=== PATIENT | male | born 1970 | race African-American/Black ===

== ENCOUNTER 2016-07-23 19:44 | Inpatient (IN) | payer OTHER ==
[2016-07-23 20:10] VITALS: BMI 22.6
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
[2016-07-23] MEDS ORDERED: MAGNESIUM HYDROX 2400MG/30ML ORAL SUSPENSION 30 ML CUP PO PRN (20:57)
[2016-07-23] MEDS ORDERED: IBUPROFEN 400 MG TABLET (FP) PO PRN (20:57)
[2016-07-23] MEDS ORDERED: chlordiazePOXIDE HCL 25 MG CAPSULE PO PRN (20:57)
[2016-07-23] MEDS ORDERED: MAG HYDROX/AL HYDROX/SIMETH 30 ML UNIT-DOSE CUP PO PRN (20:57)
[2016-07-23] MEDS ORDERED: MAGNESIUM CITRATE 300 ML BOTTLE PO PRN (20:57)
[2016-07-23] MEDS ORDERED: LOPERAMIDE HCL 2 MG CAPSULE PO PRN (20:57)
[2016-07-23] MEDS ORDERED: ACETAMINOPHEN 325 MG TABLET (FP) PO PRN (20:57)
[2016-07-23] MEDS ORDERED: MENTHOL/PHENOL 1 EACH UD MM PRN (20:57)
[2016-07-23] MEDS ORDERED: P-EPHED 60MG/TRIPROLIDI 2.5MG TABLET PO PRN (20:57)
[2016-07-23] MEDS ORDERED: guaiFENesin/D-METHORPHAN HB 10 ML UNIT-DOSE CUPS PO PRN (20:57)
[2016-07-23] MEDS ORDERED: hydrOXYzine PAMOATE 50 MG CAPSULE (FP) PO PRN (20:57)
[2016-07-23] MEDS: diphenhydrAMINE HCL 50 MG CAPSULE PO PRN (22:55)
[2016-07-23] MEDS: chlordiazePOXIDE HCL 25 MG CAPSULE PO SCH (22:55)
[2016-07-23] MEDS: THIAMINE HCL 100 MG TABLET (FP) PO SCH (22:58)
[2016-07-23] MEDS: FLUTICASONE PROP 0.05% 16 GM NASAL SPRAY NS SCH (22:59)
[2016-07-24] MEDS: chlordiazePOXIDE HCL 25 MG CAPSULE PO SCH ×4 (05:11→22:13)
[2016-07-24 10:07] LABS: MCH 30.8 pg (25.7-33.7); MEAN CELL VOLUME 93.5 fl (80-96); MEAN PLT VOLUME 9.4 fl (7.5-11.1); PLATELET COUNT 201 K/MM3 (134-434); WHITE BLOOD COUNT 7.1 K/mm3 (4.0-10.0)
[2016-07-24] MEDS: NICOTINE 14 MG/24 HOURS TOPICAL PATCH TD SCH (10:14)
[2016-07-24] MEDS: PRENATAL VITAMINS W/ FOLIC ACID TABLET (FP) PO SCH (10:14)
[2016-07-24 11:01] LABS: ALBUMIN 3.1 g/dl (3.4-5.0); ANION GAP 8 (8-16); CALCIUM 8.5 mg/dL (8.5-10.1); CO2 27 mmol/L (21-32); COCKROFT - GAULT 67.61; CREATININE 1.2 mg/dL (0.7-1.3); GLUCOSE,RANDOM 91 mg/dL (74-106); TOT PROT 5.6 g/dl (6.4-8.2)
[2016-07-24 11:02] LABS: ALK PHOS 93 U/L (45-117); BILIRUBIN,TOTAL 0.3 mg/dL (0.2-1.0); SGOT/AST 19 U/L (15-37); SGPT/ALT 37 U/L (12-78)
--- NOTE | 2016-07-24 11:45 | EKG ---
Test Reason : Blood Pressure : / mmHG Vent. Rate : 054 BPM Atrial Rate : 054 BPM P-R Int : 146 ms QRS Dur : 080 ms QT Int : 438 ms P-R-T Axes : 072 046 043 degrees QTc Int : 415 ms SINUS BRADYCARDIA WITH SINUS ARRHYTHMIA OTHERWISE NORMAL ECG NO PREVIOUS ECGS AVAILABLE Confirmed by ANGELIC MAGALLON, NOMI ([id number]) on 07/24/2016 11:44:46 AM Referred By: Navin Boone Confirmed By:NOMI ATWOOD MD
[2016-07-24] MEDS: FLUTICASONE PROP 0.05% 16 GM NASAL SPRAY NS SCH ×2 (12:02→22:12)
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
[2016-07-24 14:48] LABS: URINE APPEARANCE CLEAR; URINE BILIRUBIN NEGATIVE (NEGATIVE); URINE BLOOD NEGATIVE (NEGATIVE); URINE COLOR LTYELLOW; URINE GLUCOSE (UA) NEGATIVE (NEGATIVE); URINE KETONE NEGATIVE (NEGATIVE); URINE LEUK ESTERASE NEGATIVE (NEGATIVE); URINE NITRITE NEGATIVE (NEGATIVE); URINE PROTEIN NEGATIVE (NEGATIVE); URINE UROBILINOGEN NEGATIVE E.U./dl (0.2-1.0)
--- NOTE | 2016-07-24 17:10 | PN ---
S CIWA - CIWA Score Nausea/Vomitin Muscle Tremors: 2 Anxiety: 2 Agitation: 2 Paroxysmal Sweats: 3 Orientation: 0-Oriented Tacttile Disturbances: 1-Very Mild Itch/Numbness Auditory Disturbances: 0-None Visual Disturbances: 0-None Headache: 0-None Present CIWA-Ar Total Score: 12 S Progress Note (SOAP) Subjective: interrupted sleep, sweats Objective: 07/24/16 17:09 Vital Signs Temperature 96.4 F L 07/24/16 13:36 Pulse Rate 65 07/24/16 13:36 Respiratory Rate 18 07/24/16 13:36 Blood Pressure 110/75 07/24/16 13:36 O2 Sat by Pulse Oximetry (%) Laboratory Tests 07/24/16 07/24/16 07/24/16 07:00 07:00 07:00 WBC 7.1 RBC 4.38 Hgb 13.5 D Hct 40.9 MCV 93.5 MCHC 33.0 RDW 14.0 Plt Count 201 MPV 9.4 Sodium 143 Potassium 3.8 Chloride 108 H Carbon Dioxide 27 Anion Gap 8 BUN 18 Creatinine 1.2 Creat Clearance w eGFR > 60 Random Glucose 91 Calcium 8.5 Total Bilirubin 0.3 D AST 19 D ALT 37 D Alkaline Phosphatase 93 Total Protein 5.6 L Albumin 3.1 L Urine Color Urine Appearance Urine pH Urine Protein Urine Glucose (UA) Urine Ketones Urine Blood Urine Nitrite Urine Bilirubin Urine Urobilinogen Ur Leukocyte Esterase RPR Titer Nonreactive 07/24/16 11:00 WBC RBC Hgb Hct MCV MCHC RDW Plt Count MPV Sodium Potassium Chloride Carbon Dioxide Anion Gap BUN Creatinine Creat Clearance w eGFR Random Glucose Calcium Total Bilirubin AST ALT Alkaline Phosphatase Total Protein Albumin Urine Color Ltyellow Urine Appearance Clear Urine pH 5.0 Urine Protein Negative Urine Glucose (UA) Negative Urine Ketones Negative Urine Blood Negative Urine Nitrite Negative Urine Bilirubin Negative Urine Urobilinogen Negative Ur Leukocyte Esterase Negative RPR Titer pt aox3 in nad ambulating 07/24/16 17:10 Assessment: 07/24/16 17:10 withdrawal sx;s ' Plan: cont. detox increase fluids
[2016-07-24] MEDS: ARTIFICIAL TEARS (POLYVINYL ALCOHOL 1.4%) OPTH DROPS OU PRN (22:12)
[2016-07-24] MEDS: diphenhydrAMINE HCL 50 MG CAPSULE PO PRN (22:13)
[2016-07-24] MEDS: THIAMINE HCL 100 MG TABLET (FP) PO SCH (22:13)
[2016-07-25] MEDS: chlordiazePOXIDE HCL 25 MG CAPSULE PO SCH ×3 (06:14→17:19)
[2016-07-25] MEDS: ARTIFICIAL TEARS (POLYVINYL ALCOHOL 1.4%) OPTH DROPS OU PRN ×2 (06:15→22:11)
--- NOTE | 2016-07-25 10:05 | PN ---
[facility] CIWA - CIWA Score Nausea/Vomitin-No Nausea/No Vomiting Muscle Tremors: 3 Anxiety: 3 Agitation: 3 Paroxysmal Sweats: 2 Orientation: 0-Oriented Tacttile Disturbances: 0-None Auditory Disturbances: 0-None Visual Disturbances: 0-None Headache: 0-None Present CIWA-Ar Total Score: 11 [facility] Progress Note (SOAP) Subjective: tired sweats irritable Objective: 07/25/16 10:04 Vital Signs Temperature 97.2 F L 07/25/16 06:36 Pulse Rate 64 07/25/16 06:36 Respiratory Rate 16 07/25/16 06:36 Blood Pressure 98/55 07/25/16 06:36 O2 Sat by Pulse Oximetry (%) Laboratory Tests 07/24/16 07/24/16 07/24/16 07:00 07:00 07:00 WBC 7.1 RBC 4.38 Hgb 13.5 D Hct 40.9 MCV 93.5 MCHC 33.0 RDW 14.0 Plt Count 201 MPV 9.4 Sodium 143 Potassium 3.8 Chloride 108 H Carbon Dioxide 27 Anion Gap 8 BUN 18 Creatinine 1.2 Creat Clearance w eGFR > 60 Random Glucose 91 Calcium 8.5 Total Bilirubin 0.3 D AST 19 D ALT 37 D Alkaline Phosphatase 93 Total Protein 5.6 L Albumin 3.1 L Urine Color Urine Appearance Urine pH Ur Specific [place] Urine Protein Urine Glucose (UA) Urine Ketones Urine Blood Urine Nitrite Urine Bilirubin Urine Urobilinogen Ur Leukocyte Esterase RPR Titer Nonreactive 07/24/16 11:00 WBC RBC Hgb Hct MCV MCHC RDW Plt Count MPV Sodium Potassium Chloride Carbon Dioxide Anion Gap BUN Creatinine Creat Clearance w eGFR Random Glucose Calcium Total Bilirubin AST ALT Alkaline Phosphatase Total Protein Albumin Urine Color Ltyellow Urine Appearance Clear Urine pH 5.0 Ur Specific [place] 1.020 Urine Protein Negative Urine Glucose (UA) Negative Urine Ketones Negative Urine Blood Negative Urine Nitrite Negative Urine Bilirubin Negative Urine Urobilinogen Negative Ur Leukocyte Esterase Negative RPR Titer awake/alert ambulating no acute distress Assessment: 07/25/16 10:05 withdrawal sx Plan: continue detox increase fluids
[2016-07-25] MEDS: PRENATAL VITAMINS W/ FOLIC ACID TABLET (FP) PO SCH (10:24)
[2016-07-25] MEDS: FLUTICASONE PROP 0.05% 16 GM NASAL SPRAY NS SCH ×2 (10:24→22:11)
[2016-07-25] MEDS: NICOTINE 14 MG/24 HOURS TOPICAL PATCH TD SCH (10:24)
[2016-07-25] MEDS ORDERED: chlordiazePOXIDE HCL 25 MG CAPSULE PO ONE (10:42)
[2016-07-25] MEDS: THIAMINE HCL 100 MG TABLET (FP) PO SCH (22:12)
[2016-07-25] MEDS: diphenhydrAMINE HCL 50 MG CAPSULE PO PRN (22:12)
[2016-07-25] MEDS: chlordiazePOXIDE 5 MG CAPSULE PO SCH (22:13)
[2016-07-26] MEDS: chlordiazePOXIDE 5 MG CAPSULE PO SCH ×3 (05:24→17:47)
[2016-07-26] MEDS: ARTIFICIAL TEARS (POLYVINYL ALCOHOL 1.4%) OPTH DROPS OU PRN ×2 (05:27→10:14)
[2016-07-26] MEDS: PRENATAL VITAMINS W/ FOLIC ACID TABLET (FP) PO SCH (10:11)
[2016-07-26] MEDS: FLUTICASONE PROP 0.05% 16 GM NASAL SPRAY NS SCH ×2 (10:11→22:10)
[2016-07-26] MEDS: NICOTINE 14 MG/24 HOURS TOPICAL PATCH TD SCH (10:12)
[2016-07-26] MEDS ORDERED: LIDOCAINE 5% TOPICAL PATCH TP ONE (12:00)
--- NOTE | 2016-07-26 12:04 | PN ---
[facility] Progress Note (SOAP) Subjective: feeling better but lbp. Objective: 07/26/16 12:03 Vital Signs Temperature 96.1 F L 07/26/16 09:50 Pulse Rate 68 07/26/16 09:50 Respiratory Rate 18 07/26/16 09:50 Blood Pressure 109/78 07/26/16 09:50 O2 Sat by Pulse Oximetry (%) Laboratory Tests 07/24/16 07/24/16 07/24/16 07:00 07:00 07:00 WBC 7.1 RBC 4.38 Hgb 13.5 D Hct 40.9 MCV 93.5 MCHC 33.0 RDW 14.0 Plt Count 201 MPV 9.4 Sodium 143 Potassium 3.8 Chloride 108 H Carbon Dioxide 27 Anion Gap 8 BUN 18 Creatinine 1.2 Creat Clearance w eGFR > 60 Random Glucose 91 Calcium 8.5 Total Bilirubin 0.3 D AST 19 D ALT 37 D Alkaline Phosphatase 93 Total Protein 5.6 L Albumin 3.1 L Urine Color Urine Appearance Urine pH Ur Specific [place] Urine Protein Urine Glucose (UA) Urine Ketones Urine Blood Urine Nitrite Urine Bilirubin Urine Urobilinogen Ur Leukocyte Esterase RPR Titer Nonreactive 07/24/16 11:00 WBC RBC Hgb Hct MCV MCHC RDW Plt Count MPV Sodium Potassium Chloride Carbon Dioxide Anion Gap BUN Creatinine Creat Clearance w eGFR Random Glucose Calcium Total Bilirubin AST ALT Alkaline Phosphatase Total Protein Albumin Urine Color Ltyellow Urine Appearance Clear Urine pH 5.0 Ur Specific [place] 1.020 Urine Protein Negative Urine Glucose (UA) Negative Urine Ketones Negative Urine Blood Negative Urine Nitrite Negative Urine Bilirubin Negative Urine Urobilinogen Negative Ur Leukocyte Esterase Negative RPR Titer pt aox3 in nad ambualting Assessment: 07/26/16 12:03 withdrawal sx;s lbp Plan: cont. detox increase fluids lidocaine patch d/c in am
[2016-07-26] MEDS ORDERED: LIDOCAINE PATCH REMOVAL MC SCH ×2 (22:00)
[2016-07-26] MEDS: chlordiazePOXIDE HCL 10 MG CAPSULE PO SCH (22:10)
[2016-07-26] MEDS: diphenhydrAMINE HCL 50 MG CAPSULE PO PRN (22:11)
[2016-07-26] MEDS: THIAMINE HCL 100 MG TABLET (FP) PO SCH (22:11)
[2016-07-27] MEDS: chlordiazePOXIDE HCL 10 MG CAPSULE PO SCH (06:08)
[2016-07-27] MEDS: ARTIFICIAL TEARS (POLYVINYL ALCOHOL 1.4%) OPTH DROPS OU PRN (06:09)
[2016-07-27 07:13] VITALS: BP 94/59; PULSE 74; TEMP 97.3
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
[2016-07-27] MEDS ORDERED: LIDOCAINE 5% TOPICAL PATCH TP SCH (10:00)
== END 2016-07-27 10:00 | disposition home or self-care (01) | DRG 897 ==
LOC: YASAS 19:44 → Y6N 21:24
PROVIDERS: ADMIT Internal Medicine; ATTEND Internal Medicine Addiction Medicine
PROC: HZ2ZZZZ Detoxification Services for Substance Abuse Treatment (ICD-10-PCS; principal; 2016-07-23)
DX: F19.230 Other psychoactive substance dependence with withdrawal, uncomplicated (principal); F14.20 Cocaine dependence, uncomplicated; F10.230 Alcohol dependence with withdrawal, uncomplicated; F17.210 Nicotine dependence, cigarettes, uncomplicated; F32.9 Major depressive disorder, single episode, unspecified; M54.5 Low back pain; Z86.79 Personal history of other diseases of the circulatory system; Z91.5 Personal history of self-harm; Z86.11 Personal history of tuberculosis
CPT/HCPCS: 36415; 71020-TC; 80053; 81003; 85027; 86593; 93005; 93010

== ENCOUNTER 2017-10-24 15:37 | Inpatient (IN) | payer OTHER ==
[2017-10-24 15:46] VITALS: BMI 21.9
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
[2017-10-24] MEDS ORDERED: MENTHOL/PHENOL 1 EACH UD MM PRN (17:36)
[2017-10-24] MEDS ORDERED: MAGNESIUM CITRATE 300 ML BOTTLE PO PRN (17:36)
[2017-10-24] MEDS ORDERED: LOPERAMIDE HCL 2 MG CAPSULE PO PRN (17:36)
[2017-10-24] MEDS ORDERED: MAG HYDROX/AL HYDROX/SIMETH 30 ML UNIT-DOSE CUP PO PRN (17:36)
[2017-10-24] MEDS ORDERED: chlordiazePOXIDE HCL 25 MG CAPSULE PO PRN (17:36)
[2017-10-24] MEDS ORDERED: ACETAMINOPHEN 325 MG TABLET (FP) PO PRN (17:36)
[2017-10-24] MEDS ORDERED: P-EPHED 60MG/TRIPROLIDI 2.5MG TABLET PO PRN (17:36)
[2017-10-24] MEDS ORDERED: guaiFENesin/D-METHORPHAN HB 10 ML UNIT-DOSE CUPS PO PRN (17:36)
[2017-10-24] MEDS ORDERED: MAGNESIUM HYDROX 2400MG/30ML ORAL SUSPENSION 30 ML CUP PO PRN (17:36)
[2017-10-24] MEDS ORDERED: hydrOXYzine PAMOATE 50 MG CAPSULE (FP) PO PRN (17:36)
[2017-10-24] MEDS ORDERED: chlordiazePOXIDE HCL 25 MG CAPSULE PO ONE (18:30)
[2017-10-24 21:17] LABS: URINE APPEARANCE CLEAR; URINE BILIRUBIN NEGATIVE (<2.0 mg/dL); URINE COLOR COLORLESS; URINE GLUCOSE (UA) NEGATIVE (NEGATIVE); URINE KETONE NEGATIVE (NEGATIVE); URINE LEUK ESTERASE NEGATIVE (NEGATIVE); URINE NITRITE NEGATIVE (NEGATIVE); URINE PROTEIN NEGATIVE (NEGATIVE); URINE UROBILINOGEN NEGATIVE mg/dL (0.2-1.0)
[2017-10-24] MEDS: THIAMINE HCL 100 MG TABLET (FP) PO SCH (22:26)
[2017-10-24] MEDS: chlordiazePOXIDE HCL 25 MG CAPSULE PO SCH (22:26)
[2017-10-25] MEDS: chlordiazePOXIDE HCL 25 MG CAPSULE PO SCH ×4 (05:48→22:29)
[2017-10-25 10:09] LABS: CHLORIDE 111 mmol/L (98-107); HEMATOCRIT 41.5 % (35.4-49); HEMOGLOBIN 13.4 GM/dL (11.7-16.9); MCH 30.1 pg (25.7-33.7); MCHC 32.4 g/dl (32.0-35.9); MEAN CELL VOLUME 92.9 fl (80-96); MEAN PLT VOLUME 9.5 fl (7.5-11.1); PLATELET COUNT 177 K/MM3 (134-434); POTASSIUM 4.1 mmol/L (3.5-5.1); RBC 4.46 M/mm3 (4.00-5.60); RDW 13.9 % (11.9-15.9); SODIUM 146 mmol/L (136-145); WHITE BLOOD COUNT 5.9 K/mm3 (4.0-10.0)
[2017-10-25] MEDS: PRENATAL VITAMINS W/ FOLIC ACID TABLET (FP) PO SCH (10:11)
[2017-10-25] MEDS: NICOTINE 21 MG/24 HOURS TOPICAL PATCH TD SCH (10:11)
[2017-10-25 10:16] LABS: ALBUMIN 3.1 g/dl (3.4-5.0); ALK PHOS 94 U/L (45-117); ANION GAP 7 MMOL/L (8-16); BILIRUBIN,TOTAL 0.2 mg/dL (0.2-1.0); BLOOD UREA NITROGEN 11 mg/dL (7-18); CALCIUM 8.3 mg/dL (8.5-10.1); CO2 28 mmol/L (21-32); CREATININE 1.2 mg/dL (0.7-1.3); GLUCOSE,RANDOM 83 mg/dL (74-106); SGOT/AST 9 U/L (15-37); SGPT/ALT 17 U/L (12-78); TOT PROT 5.7 g/dl (6.4-8.2)
--- NOTE | 2017-10-25 12:09 | EKG ---
Test Reason : Blood Pressure : / mmHG Vent. Rate : 057 BPM Atrial Rate : 057 BPM P-R Int : 158 ms QRS Dur : 080 ms QT Int : 434 ms P-R-T Axes : 065 052 038 degrees QTc Int : 422 ms SINUS BRADYCARDIA OTHERWISE NORMAL ECG WHEN COMPARED WITH ECG OF 31-DEC-2016 21:35, NO SIGNIFICANT CHANGE WAS FOUND Confirmed by TELLY SCHULTZ MD ([id number]) on 10/25/2017 12:09:20 PM Referred By: Confirmed By:TELLY SCHULTZ MD
--- NOTE | 2017-10-25 12:38 | PN ---
[facility] CIWA - CIWA Score Nausea/Vomitin-No Nausea/No Vomiting Muscle Tremors: 2 Anxiety: 4-Mod. Anxious/Guarded Agitation: 2 Paroxysmal Sweats: 3 Orientation: 0-Oriented Tacttile Disturbances: 3-Moderate Itch/Numb/Burn Auditory Disturbances: 0-None Visual Disturbances: 2-Mild Sensitivity Headache: 0-None Present CIWA-Ar Total Score: 16 BHS Progress Note (SOAP) Subjective: Fatigue, Sweating, Anxious. Objective: PATIENT A & O X 2 (UNCERTAIN ABOUT CURRENT DAY / DATE). PATIENT OBSERVED AMBULATING ON UNIT. NO ACUTE DISTRESS. 10/25/17 12:39 Vital Signs Temperature 96.9 F L 10/25/17 09:52 Pulse Rate 89 10/25/17 09:52 Respiratory Rate 20 10/25/17 09:52 Blood Pressure 98/61 10/25/17 09:52 O2 Sat by Pulse Oximetry (%) Laboratory Tests 10/24/17 10/25/17 10/25/17 20:45 07:00 07:00 WBC 5.9 RBC 4.46 Hgb 13.4 Hct 41.5 MCV 92.9 MCH 30.1 MCHC 32.4 RDW 13.9 Plt Count 177 MPV 9.5 Sodium 146 H Potassium 4.1 Chloride 111 H Carbon Dioxide 28 Anion Gap 7 L BUN 11 Creatinine 1.2 Creat Clearance w eGFR > 60 Random Glucose 83 Calcium 8.3 L Total Bilirubin 0.2 AST 9 L ALT 17 Alkaline Phosphatase 94 Total Protein 5.7 L Albumin 3.1 L Urine Color Colorless Urine Appearance Clear Urine pH 6.0 Ur Specific [place] 1.004 Urine Protein Negative Urine Glucose (UA) Negative Urine Ketones Negative Urine Blood Negative Urine Nitrite Negative Urine Bilirubin Negative Urine Urobilinogen Negative Ur Leukocyte Esterase Negative LABS NOTED. RPR RESULT PENDING. 10/25/17 12:43 Assessment: 10/25/17 12:42 WITHDRAWAL SYMPTOMS. Plan: CONTINUE DETOX.
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
[2017-10-25] MEDS: THIAMINE HCL 100 MG TABLET (FP) PO SCH (22:29)
[2017-10-26] MEDS: chlordiazePOXIDE HCL 25 MG CAPSULE PO SCH ×3 (05:06→17:38)
[2017-10-26] MEDS: PRENATAL VITAMINS W/ FOLIC ACID TABLET (FP) PO SCH (10:07)
[2017-10-26] MEDS: NICOTINE 21 MG/24 HOURS TOPICAL PATCH TD SCH (10:07)
--- NOTE | 2017-10-26 19:38 | PN ---
[facility] CIWA - CIWA Score Nausea/Vomitin-No Nausea/No Vomiting Muscle Tremors: None Anxiety: 3 Agitation: 0-Normal Activity Paroxysmal Sweats: No Perspiration Orientation: 2-Disoriented Date<2 days Tacttile Disturbances: 2-Mild Itch/Numbness/Burn Auditory Disturbances: 1-Very Mild Visual Disturbances: 2-Mild Sensitivity Headache: 0-None Present CIWA-Ar Total Score: 10 S Progress Note (SOAP) Subjective: Body Aches, Fatigue, Anxious. Objective: PATIENT A & O X 2 (UNCERTAIN ABOUT CURRENT DAY / DATE). PATIENT OBSERVED AMBULATING ON UNIT. NO ACUTE DISTRESS. Vital Signs Temperature 97.2 F L 10/26/17 17:59 Pulse Rate 53 L 10/26/17 17:59 Respiratory Rate 16 10/26/17 17:59 Blood Pressure 94/68 10/26/17 17:59 O2 Sat by Pulse Oximetry (%) Laboratory Tests 10/24/17 10/25/17 10/25/17 20:45 07:00 07:00 WBC 5.9 RBC 4.46 Hgb 13.4 Hct 41.5 MCV 92.9 MCH 30.1 MCHC 32.4 RDW 13.9 Plt Count 177 MPV 9.5 Sodium 146 H Potassium 4.1 Chloride 111 H Carbon Dioxide 28 Anion Gap 7 L BUN 11 Creatinine 1.2 Creat Clearance w eGFR > 60 Random Glucose 83 Calcium 8.3 L Total Bilirubin 0.2 AST 9 L ALT 17 Alkaline Phosphatase 94 Total Protein 5.7 L Albumin 3.1 L Urine Color Colorless Urine Appearance Clear Urine pH 6.0 Ur Specific [place] 1.004 Urine Protein Negative Urine Glucose (UA) Negative Urine Ketones Negative Urine Blood Negative Urine Nitrite Negative Urine Bilirubin Negative Urine Urobilinogen Negative Ur Leukocyte Esterase Negative RPR Titer 10/25/17 07:00 WBC RBC Hgb Hct MCV MCH MCHC RDW Plt Count MPV Sodium Potassium Chloride Carbon Dioxide Anion Gap BUN Creatinine Creat Clearance w eGFR Random Glucose Calcium Total Bilirubin AST ALT Alkaline Phosphatase Total Protein Albumin Urine Color Urine Appearance Urine pH Ur Specific [place] Urine Protein Urine Glucose (UA) Urine Ketones Urine Blood Urine Nitrite Urine Bilirubin Urine Urobilinogen Ur Leukocyte Esterase RPR Titer Nonreactive LABS NOTED. 10/26/17 19:36 Assessment: 10/26/17 19:37 WITHDRAWAL SYMPTOMS. Plan: CONTINUE DETOX. INCREASE DAILY PO FLUID INTAKE. ENCOURAGE AMBULATION.
[2017-10-26] MEDS: THIAMINE HCL 100 MG TABLET (FP) PO SCH (22:07)
[2017-10-26] MEDS: chlordiazePOXIDE 5 MG CAPSULE PO SCH (22:07)
[2017-10-26] MEDS: IBUPROFEN 400 MG TABLET (FP) PO PRN (22:33)
[2017-10-26] MEDS: NICOTINE POLACRILEX 4 MG GUM BC PRN (22:53)
[2017-10-27] MEDS: chlordiazePOXIDE 5 MG CAPSULE PO SCH ×3 (05:17→17:39)
[2017-10-27] MEDS: IBUPROFEN 400 MG TABLET (FP) PO PRN ×3 (05:19→17:41)
[2017-10-27] MEDS: NICOTINE 21 MG/24 HOURS TOPICAL PATCH TD SCH (10:36)
[2017-10-27] MEDS: PRENATAL VITAMINS W/ FOLIC ACID TABLET (FP) PO SCH (10:37)
--- NOTE | 2017-10-27 15:11 | PN ---
[facility] Progress Note (SOAP) Subjective: Anxious, interrupted sleep Objective: 10/27/17 15:09 Last Vital Signs Temp Pulse Resp BP Pulse Ox 97.6 F 89 16 87/60 10/27/17 15:05 10/27/17 15:05 10/27/17 15:05 10/27/17 15:05 Noted with hypotension Laboratory Tests 10/24/17 10/25/17 10/25/17 20:45 07:00 07:00 WBC 5.9 RBC 4.46 Hgb 13.4 Hct 41.5 MCV 92.9 MCH 30.1 MCHC 32.4 RDW 13.9 Plt Count 177 MPV 9.5 Sodium 146 H Potassium 4.1 Chloride 111 H Carbon Dioxide 28 Anion Gap 7 L BUN 11 Creatinine 1.2 Creat Clearance w eGFR > 60 Random Glucose 83 Calcium 8.3 L Total Bilirubin 0.2 AST 9 L ALT 17 Alkaline Phosphatase 94 Total Protein 5.7 L Albumin 3.1 L Urine Color Colorless Urine Appearance Clear Urine pH 6.0 Ur Specific [place] 1.004 Urine Protein Negative Urine Glucose (UA) Negative Urine Ketones Negative Urine Blood Negative Urine Nitrite Negative Urine Bilirubin Negative Urine Urobilinogen Negative Ur Leukocyte Esterase Negative RPR Titer 10/25/17 07:00 WBC RBC Hgb Hct MCV MCH MCHC RDW Plt Count MPV Sodium Potassium Chloride Carbon Dioxide Anion Gap BUN Creatinine Creat Clearance w eGFR Random Glucose Calcium Total Bilirubin AST ALT Alkaline Phosphatase Total Protein Albumin Urine Color Urine Appearance Urine pH Ur Specific [place] Urine Protein Urine Glucose (UA) Urine Ketones Urine Blood Urine Nitrite Urine Bilirubin Urine Urobilinogen Ur Leukocyte Esterase RPR Titer Nonreactive Labs reviewed Assessment: 10/27/17 15:10 Withdrawal symptoms Noted with hypotension Plan: Continue detox Hypotension: asymptomatic, encouraged PO water hydration
[2017-10-27] MEDS: chlordiazePOXIDE HCL 10 MG CAPSULE PO SCH (22:22)
[2017-10-27] MEDS: MELATONIN 5 MG TABLETS PO PRN (22:22)
[2017-10-27] MEDS: THIAMINE HCL 100 MG TABLET (FP) PO SCH (22:22)
[2017-10-28] MEDS: chlordiazePOXIDE HCL 10 MG CAPSULE PO SCH ×2 (05:51→12:01)
[2017-10-28] MEDS: NICOTINE 21 MG/24 HOURS TOPICAL PATCH TD SCH (10:29)
[2017-10-28] MEDS: PRENATAL VITAMINS W/ FOLIC ACID TABLET (FP) PO SCH (10:29)
--- NOTE | 2017-10-28 10:48 | PN ---
[facility] Progress Note (SOAP) Subjective: DETOX COMPLETED. ALERT O X 3. NAD. PT REPORTS HE HAS PRIMARY CARE AT [facility] NEEDED. REFERRED TO [facility] FOR REHAB TODAY. Objective: 10/28/17 10:48 Vital Signs 10/28/17 10/28/17 10/28/17 03:30 06:07 09:06 Temperature 97.3 F L 96.3 F L Pulse Rate 60 63 Respiratory 18 18 18 Rate Blood Pressure 92/67 93/71 Laboratory Tests 10/24/17 10/25/17 10/25/17 20:45 07:00 07:00 WBC 5.9 RBC 4.46 Hgb 13.4 Hct 41.5 MCV 92.9 MCH 30.1 MCHC 32.4 RDW 13.9 Plt Count 177 MPV 9.5 Sodium 146 H Potassium 4.1 Chloride 111 H Carbon Dioxide 28 Anion Gap 7 L BUN 11 Creatinine 1.2 Creat Clearance w eGFR > 60 Random Glucose 83 Calcium 8.3 L Total Bilirubin 0.2 AST 9 L ALT 17 Alkaline Phosphatase 94 Total Protein 5.7 L Albumin 3.1 L Urine Color Colorless Urine Appearance Clear Urine pH 6.0 Ur Specific [place] 1.004 Urine Protein Negative Urine Glucose (UA) Negative Urine Ketones Negative Urine Blood Negative Urine Nitrite Negative Urine Bilirubin Negative Urine Urobilinogen Negative Ur Leukocyte Esterase Negative RPR Titer 10/25/17 07:00 WBC RBC Hgb Hct MCV MCH MCHC RDW Plt Count MPV Sodium Potassium Chloride Carbon Dioxide Anion Gap BUN Creatinine Creat Clearance w eGFR Random Glucose Calcium Total Bilirubin AST ALT Alkaline Phosphatase Total Protein Albumin Urine Color Urine Appearance Urine pH Ur Specific [place] Urine Protein Urine Glucose (UA) Urine Ketones Urine Blood Urine Nitrite Urine Bilirubin Urine Urobilinogen Ur Leukocyte Esterase RPR Titer Nonreactive Assessment: 10/28/17 10:50 MEDICALLY STABLE Plan: TRANSFER PT TO REHAB TODAY.
--- NOTE | 2017-10-28 10:53 | DS ---
[facility] Detox Discharge Summary Admission Date: 10/24/17 Discharge Date: 10/28/17 - History Present History: Alcohol Dependence, Cocaine Dependence Additional Comments: DETOX COMPLETED. ALERT O X 3. Pertinent Past History: PLEASE SEE DX BELOW - Physical Exam Results Vital Signs: Vital Signs Temperature 96.3 F L 10/28/17 09:06 Pulse Rate 63 10/28/17 09:06 Respiratory Rate 18 10/28/17 09:06 Blood Pressure 93/71 10/28/17 09:06 O2 Sat by Pulse Oximetry (%) Pertinent Admission Physical Exam Findings: WITHDRAWAL SX Laboratory Tests 10/24/17 10/25/17 10/25/17 20:45 07:00 07:00 WBC 5.9 RBC 4.46 Hgb 13.4 Hct 41.5 MCV 92.9 MCH 30.1 MCHC 32.4 RDW 13.9 Plt Count 177 MPV 9.5 Sodium 146 H Potassium 4.1 Chloride 111 H Carbon Dioxide 28 Anion Gap 7 L BUN 11 Creatinine 1.2 Creat Clearance w eGFR > 60 Random Glucose 83 Calcium 8.3 L Total Bilirubin 0.2 AST 9 L ALT 17 Alkaline Phosphatase 94 Total Protein 5.7 L Albumin 3.1 L Urine Color Colorless Urine Appearance Clear Urine pH 6.0 Ur Specific [place] 1.004 Urine Protein Negative Urine Glucose (UA) Negative Urine Ketones Negative Urine Blood Negative Urine Nitrite Negative Urine Bilirubin Negative Urine Urobilinogen Negative Ur Leukocyte Esterase Negative RPR Titer 10/25/17 07:00 WBC RBC Hgb Hct MCV MCH MCHC RDW Plt Count MPV Sodium Potassium Chloride Carbon Dioxide Anion Gap BUN Creatinine Creat Clearance w eGFR Random Glucose Calcium Total Bilirubin AST ALT Alkaline Phosphatase Total Protein Albumin Urine Color Urine Appearance Urine pH Ur Specific [place] Urine Protein Urine Glucose (UA) Urine Ketones Urine Blood Urine Nitrite Urine Bilirubin Urine Urobilinogen Ur Leukocyte Esterase RPR Titer Nonreactive - Treatment Hospital Course: Detox Protocol Followed, Detoxed Safely, Responded well, Discharged Condition Good, Rehab Referral Accepted Patient has Accepted a Rehab Referral to: [facility] [place] - Medication Discharge Medications: Ambulatory Orders NK [No Known Home Medication] 07/23/16 - Diagnosis (1) Alcohol dependence with uncomplicated withdrawal Current Visit: Yes Status: Acute (2) Cocaine dependence Current Visit: Yes Status: Acute (3) Hypotension Current Visit: Yes Status: Acute Qualifiers: Hypotension type: unspecified hypotension type Qualified Code(s): I95.9 - Hypotension, unspecified (4) Nicotine dependence Current Visit: Yes Status: Acute Qualifiers: Nicotine product type: cigarettes Substance use status: in withdrawal Qualified Code(s): F17.213 - Nicotine dependence, cigarettes, with withdrawal - AMA Did Patient Leave Against Medical Advice: No
--- NOTE | 2017-10-28 16:40 | HP ---
[facility] Rehab Assess/Revision - Admission History Admitted to Rehab from: [facility] [place] Date of Admission to Rehab: 10/28/17 - Vital signs Vital Signs: Vital Signs Period Temp Pulse Resp BP Sys/Kline Pulse Ox Last 24 Hr 96.3 F-98.4 F 60-82 16-18 87-93/54-71 - Findings Detox History & Physical reviewed: Yes Concur with findings: Yes Inpatient Rehab Admission - Initial Determination Are CD services needed?: Yes Free of communicable disease: Yes Not in need of hospitalization: Yes - Rehab Admission Criteria Previous failed treatment: Yes Poor recovery environment: Yes Comorbidities: Yes Lacks judgement: Yes Patient is meeting Inpatient Rehab admission criteria:: Yes
[2017-10-28] MEDS: THIAMINE HCL 100 MG TABLET (FP) PO SCH (21:41)
[2017-10-28] MEDS: MELATONIN 5 MG TABLETS PO PRN (21:41)
[2017-10-29] MEDS: NICOTINE POLACRILEX 4 MG GUM BC PRN (10:21)
[2017-10-29] MEDS: NICOTINE 21 MG/24 HOURS TOPICAL PATCH TD SCH (10:21)
[2017-10-29] MEDS: PRENATAL VITAMINS W/ FOLIC ACID TABLET (FP) PO SCH (10:21)
[2017-10-29] MEDS: THIAMINE HCL 100 MG TABLET (FP) PO SCH (21:39)
[2017-10-29] MEDS: MELATONIN 5 MG TABLETS PO PRN (21:39)
[2017-10-30] MEDS: PRENATAL VITAMINS W/ FOLIC ACID TABLET (FP) PO SCH (10:49)
[2017-10-30] MEDS: NICOTINE 21 MG/24 HOURS TOPICAL PATCH TD SCH (10:49)
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
[2017-10-30] MEDS: THIAMINE HCL 100 MG TABLET (FP) PO SCH (21:09)
[2017-10-30] MEDS: MELATONIN 5 MG TABLETS PO PRN (21:09)
[2017-10-30] MEDS ORDERED: QUEtiapine FUMARATE 50 MG TABLET PO SCH (22:00)
[2017-10-31] MEDS: PRENATAL VITAMINS W/ FOLIC ACID TABLET (FP) PO SCH (09:46)
[2017-10-31] MEDS: NICOTINE 21 MG/24 HOURS TOPICAL PATCH TD SCH (09:46)
--- NOTE | 2017-10-31 18:10 | PN ---
S Progress Note Note: Psychiatric nurse practitioner note: Pt. able to tolerate seroquel 50mg qhs. No reports of dizziness or oversedation. Pt. alert and oriented X3. No side effects noted. Will increase seroquel to 100mg. Verbal consent given.
[2017-10-31] MEDS: THIAMINE HCL 100 MG TABLET (FP) PO SCH (21:31)
[2017-10-31] MEDS: QUEtiapine FUMARATE 100 MG TABLET (FP) PO SCH (21:31)
[2017-10-31] MEDS: MELATONIN 5 MG TABLETS PO PRN (21:31)
[2017-11-01] MEDS: NICOTINE 21 MG/24 HOURS TOPICAL PATCH TD SCH (10:34)
[2017-11-01] MEDS: PRENATAL VITAMINS W/ FOLIC ACID TABLET (FP) PO SCH (10:34)
[2017-11-01] MEDS: QUEtiapine FUMARATE 100 MG TABLET (FP) PO SCH (21:51)
[2017-11-01] MEDS: MELATONIN 5 MG TABLETS PO PRN (21:51)
[2017-11-01] MEDS: THIAMINE HCL 100 MG TABLET (FP) PO SCH (21:51)
[2017-11-02] MEDS: NICOTINE 21 MG/24 HOURS TOPICAL PATCH TD SCH (09:42)
[2017-11-02] MEDS: PRENATAL VITAMINS W/ FOLIC ACID TABLET (FP) PO SCH (09:42)
[2017-11-02] MEDS: MELATONIN 5 MG TABLETS PO PRN (22:12)
[2017-11-02] MEDS: QUEtiapine FUMARATE 100 MG TABLET (FP) PO SCH (22:13)
[2017-11-02] MEDS: THIAMINE HCL 100 MG TABLET (FP) PO SCH (22:13)
[2017-11-03] MEDS: PRENATAL VITAMINS W/ FOLIC ACID TABLET (FP) PO SCH (10:15)
[2017-11-03] MEDS: NICOTINE 21 MG/24 HOURS TOPICAL PATCH TD SCH (10:16)
[2017-11-03] MEDS: THIAMINE HCL 100 MG TABLET (FP) PO SCH (21:35)
[2017-11-03] MEDS: QUEtiapine FUMARATE 100 MG TABLET (FP) PO SCH (21:36)
[2017-11-03] MEDS: MELATONIN 5 MG TABLETS PO PRN (21:36)
[2017-11-04] MEDS: NICOTINE 21 MG/24 HOURS TOPICAL PATCH TD SCH (10:15)
[2017-11-04] MEDS: PRENATAL VITAMINS W/ FOLIC ACID TABLET (FP) PO SCH (10:15)
[2017-11-04] MEDS: QUEtiapine FUMARATE 100 MG TABLET (FP) PO SCH (22:03)
[2017-11-04] MEDS: MELATONIN 5 MG TABLETS PO PRN (22:03)
[2017-11-04] MEDS: THIAMINE HCL 100 MG TABLET (FP) PO SCH (22:03)
[2017-11-05] MEDS: PRENATAL VITAMINS W/ FOLIC ACID TABLET (FP) PO SCH (10:17)
[2017-11-05] MEDS: NICOTINE 21 MG/24 HOURS TOPICAL PATCH TD SCH (10:17)
[2017-11-05] MEDS: QUEtiapine FUMARATE 100 MG TABLET (FP) PO SCH (21:51)
[2017-11-05] MEDS: MELATONIN 5 MG TABLETS PO PRN (21:51)
[2017-11-05] MEDS: THIAMINE HCL 100 MG TABLET (FP) PO SCH (21:51)
[2017-11-06 06:57] VITALS: BP 98/75; PULSE 75; TEMP 97.8
[2017-11-06] MEDS: PRENATAL VITAMINS W/ FOLIC ACID TABLET (FP) PO SCH (10:18)
[2017-11-06] MEDS: NICOTINE 21 MG/24 HOURS TOPICAL PATCH TD SCH (10:18)
[2017-11-06] MEDS ORDERED: PT OWN MED DRAWER 7, Y5N ONE (14:55)
--- NOTE | 2017-11-06 14:56 | PN ---
Psychiatric Progress Note Vital Signs: Vital Signs Period Temp Pulse Resp BP Sys/Kline Pulse Ox Last 24 Hr 97.8 F 75 18-18 98/75 Date of Session: 11/06/17 Chief Complaint:: Discharge visit HPI: Patient addressed alcohol and Cocaine dependence comorbid with Schizoaffective disorder. Current Medications: Active Medications Generic Name Dose Route Start Last Admin Trade Name Freq PRN Reason Stop Dose Admin Acetaminophen 650 mg 10/24/17 17:36 Tylenol - PO Q4H PRN FEVER Al Hydroxide/Mg Hydroxide 30 ml 10/24/17 17:36 Mylanta Oral Suspension - PO Q6H PRN DYSPEPSIA Eucalyptus/Menthol/Phenol/Sorbitol 1 each 10/24/17 17:36 Cepastat Lozenge - MM Q4H PRN SORE THROAT Guaifenesin 10 ml 10/24/17 17:36 Robitussin Dm - PO Q6H PRN COUGH Hydroxyzine Pamoate 50 mg 10/24/17 17:36 Vistaril - PO Q4H PRN AGITATION Ibuprofen 400 mg 10/24/17 17:36 10/27/17 17:41 Motrin - PO 400 mg Q6H PRN Administration PAIN LEVEL 4-6 Loperamide HCl 4 mg 10/24/17 17:36 Imodium - PO Q6H PRN DIARRHEA Magnesium Citrate 300 ml 10/24/17 17:36 Citroma - PO Q48H PRN CONSTIPATION Magnesium Hydroxide 30 ml 10/24/17 17:36 Milk Of Magnesia - PO DAILY PRN CONSTIPATION Melatonin 5 mg 10/24/17 22:00 11/05/17 21:51 Melatonin PO 5 mg HS PRN Administration INSOMNIA Nicotine 21 mg 10/25/17 10:00 11/06/17 10:18 Nicoderm Patch - TD 21 mg DAILY MARILIA Administration Nicotine Polacrilex 4 mg 10/24/17 17:36 10/29/17 10:21 Nicorette Gum - BC 4 mg Q2H PRN Administration NICOTINE REPLACEMENT RX Multivit/Folic Acid/Iron 1 tab 10/25/17 10:00 11/06/17 10:18 Vitamins (Sjr) - PO 1 tab DAILY MARILIA Administration Pseudoephedrine/Triprolidine 1 combo 10/24/17 17:36 Actifed - PO TID PRN NASAL CONGESTION Quetiapine Fumarate 100 mg 10/31/17 22:00 11/05/17 21:51 Seroquel - PO 100 mg HS MARILIA Administration Thiamine HCl 100 mg 10/24/17 22:00 11/05/17 21:51 Vitamin B1 - PO 100 mg HS MARILIA Administration Current Side Effect: No Lab tests ordered: No Lab tests reviewed: Yes Provider note:: Patient completed this program today (early discharge ).He has partially met his goals and will continue to addfress his issues on outpatient basis attending AA,NA meetings.Patient continue to find that current medication: Seroquel 100 mg po hs helps to cope with mood instability,psychosis.Scripts proided. Supportive therapy provided focusing on relapse prevention. Patient is stable for discharge today. Total face to face time:: 30 Psychiatric Treatment Plan - Problem List (1) Alcohol dependence Current Visit: Yes (2) Cocaine dependence Current Visit: Yes (3) Nicotine dependence Current Visit: Yes Qualifiers: Nicotine product type: cigarettes Substance use status: in withdrawal Qualified Code(s): F17.213 - Nicotine dependence, cigarettes, with withdrawal (4) Substance induced mood disorder Current Visit: Yes (5) Schizoaffective disorder Current Visit: Yes
== END 2017-11-06 15:05 | disposition home or self-care (01) | DRG 895 ==
LOC: YASAS 15:37 → Y3N 18:07 → Y3W 10-28 15:53
PROVIDERS: ADMIT Surgery; ATTEND Psychiatry & Neurology Psychiatry
PROC: HZ2ZZZZ Detoxification Services for Substance Abuse Treatment (ICD-10-PCS; principal; 2017-10-24)
PROC: HZ42ZZZ Group Counseling for Substance Abuse Treatment, Cognitive-Behavioral (ICD-10-PCS; 2017-10-28)
DX: F10.20 Alcohol dependence, uncomplicated (principal); F14.20 Cocaine dependence, uncomplicated; F17.213 Nicotine dependence, cigarettes, with withdrawal; F19.24 Other psychoactive substance dependence with psychoactive substance-induced mood disorder; F25.9 Schizoaffective disorder, unspecified; F32.9 Major depressive disorder, single episode, unspecified; I95.9 Hypotension, unspecified; Z91.5 Personal history of self-harm
CPT/HCPCS: 36415; 80053; 81003; 85027; 86593; 93005; 93010